=== PATIENT | female | born 1935 | race Caucasian/White ===

== ENCOUNTER 2018-09-04 19:53 | Inpatient (IN) | payer OTHER ==
[~2018-09-04] VITALS: Ht 157.5 cm; Wt 59.0 kg
[2018-09-04] MEDS ORDERED: NAMENDA10 MG (20:11)
[2018-09-04] MEDS ORDERED: LOSARTAN-HCTZ1 EAC1 (20:12)
[2018-09-04] MEDS ORDERED: CARDURA1 MG (20:12)
[2018-09-04] MEDS ORDERED: COREG CR20 MG (20:12)
--- NOTE | 2018-09-04 20:33 | NUR ---
PTE ALERTA Y ORIENTADA X3 ACOMPANADA, PTE REFIERE QUE PRESENTA DOLOR DE PECHO QUE SE IRRADIA HASTA LA ESPALDA. PTE REFIERE QUE EN EL HOME DONDE SE ENCUENTRA LE ADMINISTRARON DON PASTILLA DE NITROGLICERINA SUBLINGUAL Y NO MEJORO CON ESO. SE LE JIMMY B/P MANUAL EN 200/70 Y SE LE REALIZA EKG EL CUAL SE PRESENTA A QUIEN REFIERE QUE SE COLOQUE PTE EN K8 CONECTADO A MONITOR CARDIACO.
--- NOTE | 2018-09-04 21:25 | NUR ---
SE ORIENTA PTE SOBRE TX MEDICO EL CUAL REFIERE ENTENDER.SE LE EXTRAEN MUESTRAS,SE CANALIZA Y SE ADMINISTRA MEDICAMENTO PRATIMA ORDEN MEDICA.SE COLOCA CANULA NASAL @ 3LTS.
--- NOTE | 2018-09-05 00:45 | NUR ---
SE RECIBE FEMINA ALERTA Y ORIENTADA POR JOSE ESFERAS, EN CAMA CON BARANDAS SEGURAS Y ELEVADAS. CNECTADA A MONITOR CARDIACO CON OXIMETRIA DE PULSO. EN COMPANIA DE FAMILIAR. CANALIZADA EN BRAZO DERECHO CON AREA DE VENOPUNCION VALERIE DE EDEMA O ENROJECIMIENTO. SE CANALIZA EN MANO DERECHA Y SE MIGUEL MUESTRAS DE LABORATORIO ORDENADAS. RECIBIENDO 0.9% NSS @ 60 ML/HR Y TRIDIL 50MG/250ML @ 3 ML/HR. SE ENTREGA MUESTRA DE ORINA. SE MANTIENE EN OBSERVACION POR CAMBIOS.
--- NOTE | 2018-09-05 07:28 | NUR ---
SE RECIBE PTE FEMENIAN DE 83 YRS ALERTA CONCITE Y TRANQUILA EN COMPANIA DE FAMILIAR. PTE EN CAMA EN LA UNIDAD DE SEC-K CONCETADA A MONITOR CARDIACO Y OXIMENTRIA . PTE CON IVF PATENTE Y VALERIE DE EDEMA. BAJANDO A 60 ML HR Y TRIDIL 50/250 A 3 MLHR.SE MANTIENE EN CONSULTA CON EL , JODY SLADE LA CUAL SE MANTIENE NOTIFICADO. SE OBSERVA POR CAMBIOS.
--- NOTE | 2018-09-05 08:19 | NUR ---
SE LE JIMMY SEGUNDA MUESTRA DE TROPONINA A LA PTE . SE JIMMY MEDIDAS ASEPTICA CON PROCEDIMIENTO.
[2018-09-07] MEDS ORDERED: AMLODIPINE BESYL5 MG PO (12:35)
[2018-09-07] MEDS ORDERED: ASA-EC81 MG PO (12:37)
[2018-09-07] MEDS ORDERED: BUSPIRONE HCL5 MG PO (12:37)
[2018-09-07] MEDS ORDERED: LOSARTAN-HCTZ1 EAC1 PO (12:37)
[2018-09-07] MEDS ORDERED: NAMENDA10 MG PO (12:37)
[2018-09-07] MEDS ORDERED: ISOSORBIDE MONO30 MG PO (12:38)
[2018-09-07] MEDS ORDERED: LASIX20 MG PO (12:39)
[2018-09-07] MEDS ORDERED: Coreg 3.125MG TABLET PO (12:40)
[2018-09-07] MEDS ORDERED: CARdura 4MG TABLET PO (12:40)
== END 2018-09-07 13:48 | disposition home or self-care (01) | DRG 292 ==
LOC: ER 19:53 → SEC-K 09-05 10:43 → MEDJ 09-05 10:43
PROVIDERS: ADMIT Internal Medicine
PROC: BW24ZZZ Computerized Tomography (CT Scan) of Chest and Abdomen (ICD-10-PCS; principal; 2018-09-05)
PROC: B246ZZZ Ultrasonography of Right and Left Heart (ICD-10-PCS; 2018-09-05)
PROC: 4A12X4Z Monitoring of Cardiac Electrical Activity, External Approach (ICD-10-PCS; 2018-09-05)
DX: I11.0 Hypertensive heart disease with heart failure (principal); I25.798 Atherosclerosis of other coronary artery bypass graft(s) with other forms of angina pectoris; I50.41 Acute combined systolic (congestive) and diastolic (congestive) heart failure; I44.7 Left bundle-branch block, unspecified; I16.0 Hypertensive urgency; Z88.0 Allergy status to penicillin; Z95.1 Presence of aortocoronary bypass graft

== ENCOUNTER 2019-02-04 10:11 | Inpatient (IN) | payer OTHER ==
[~2019-02-04] VITALS: Ht 157.5 cm; Wt 59.0 kg
[~2019-02-04 10:11] MED LIST: AMLODIPINE BESYL5 MG PO; ASA-EC81 MG PO; BUSPIRONE HCL5 MG PO; CARDURA1 MG; CARdura 4MG TABLET PO; COREG CR20 MG; Coreg 3.125MG TABLET PO; ISOSORBIDE MONO30 MG PO; LASIX20 MG PO; LOSARTAN-HCTZ1 EAC1; LOSARTAN-HCTZ1 EAC1 PO; NAMENDA10 MG; NAMENDA10 MG PO
[2019-02-04] MEDS ORDERED: LYSIPLEX PLUS178 ML PO (10:32)
[2019-02-04] MEDS ORDERED: ZANTAC150 M3 PO (10:33)
[2019-02-04] MEDS ORDERED: NORVASC2.5 M1 PO (10:34)
[2019-02-04] MEDS ORDERED: IRON325 MG PO (10:34)
[2019-02-04] MEDS ORDERED: CARDURA1 MG PO (10:34)
[2019-02-04] MEDS ORDERED: ISOSORBIDE MONO30 MG PO (10:35)
[2019-02-08] MEDS ORDERED: SIMVASTATIN20 MG PO (15:30)
[2019-02-08] MEDS ORDERED: CLOPIDOGREL BIS75 MG PO (15:30)
[2019-02-08] MEDS ORDERED: AMLODIPINE BESY10 MG PO (15:30)
[2019-02-08] MEDS ORDERED: HYDRALAZINE HCL25 MG PO (15:30)
[2019-02-08] MEDS ORDERED: ASA-EC81 MG PO (15:30)
[2019-02-08] MEDS ORDERED: CARVEDILOL3.125 MG PO (15:30)
== END 2019-02-08 16:48 | disposition home or self-care (01) | DRG 281 ==
LOC: ER 10:11 → SURG 02-05 07:14 → SEC-K 02-05 07:14 → SURG 02-05 12:22 → MEDI 02-07 16:40
PROVIDERS: ADMIT Internal Medicine
PROC: B246ZZZ Ultrasonography of Right and Left Heart (ICD-10-PCS; principal; 2019-02-05)
PROC: 4A12X4Z Monitoring of Cardiac Electrical Activity, External Approach (ICD-10-PCS; 2019-02-05)
DX: I21.4 Non-ST elevation (NSTEMI) myocardial infarction (principal); I25.810 Atherosclerosis of coronary artery bypass graft(s) without angina pectoris; N17.8 Other acute kidney failure; I13.0 Hypertensive heart and chronic kidney disease with heart failure and stage 1 through stage 4 chronic kidney disease, or unspecified chronic kidney disease; I50.22 Chronic systolic (congestive) heart failure; I48.2 Chronic atrial fibrillation; I44.7 Left bundle-branch block, unspecified; I11.0 Hypertensive heart disease with heart failure; I08.0 Rheumatic disorders of both mitral and aortic valves; N18.2 Chronic kidney disease, stage 2 (mild); G30.0 Alzheimer's disease with early onset; F02.80 Dementia in other diseases classified elsewhere, unspecified severity, without behavioral disturbance, psychotic disturbance, mood disturbance, and anxiety; Z79.01 Long term (current) use of anticoagulants

== ENCOUNTER 2019-02-10 12:50 | Inpatient (IN) | payer OTHER ==
[~2019-02-10] VITALS: Ht 167.6 cm; Wt 70.8 kg
[~2019-02-10 12:50] MED LIST changes: +AMLODIPINE BESY10 MG PO; +CARDURA1 MG PO; +CARVEDILOL3.125 MG PO; +CLOPIDOGREL BIS75 MG PO; +HYDRALAZINE HCL25 MG PO; +IRON325 MG PO; +LYSIPLEX PLUS178 ML PO; +NORVASC2.5 M1 PO; +SIMVASTATIN20 MG PO; +ZANTAC150 M3 PO
[2019-03-23] MEDS ORDERED: POLY119PG PO (15:34)
[2019-03-23] MEDS ORDERED: LOSARTAN POTAS100 MG PO (15:34)
[2019-03-23] MEDS ORDERED: ASA-EC81 MG PO (15:34)
[2019-03-23] MEDS ORDERED: Neurin-Sl Tablet Sl SL (15:34)
[2019-03-23] MEDS ORDERED: CARVEDILOL3.125 MG PO (15:34)
[2019-03-23] MEDS ORDERED: APETIGEN L790 MG/15 PO (15:34)
[2019-03-23] MEDS ORDERED: NIFEDIPINE ER30 MG PO (15:34)
[2019-03-23] MEDS ORDERED: HYDRALAZINE HCL25 MG PO (15:34)
[2019-03-23] MEDS ORDERED: FOLIC ACID1 MG PO (15:34)
== END 2019-03-23 17:04 | disposition home or self-care (01) | DRG 682 ==
LOC: ER 12:50 → SURH 02-11 00:06 → MEDJ 02-21 14:46
PROVIDERS: ADMIT Internal Medicine
PROC: B54CZZZ Ultrasonography of Left Lower Extremity Veins (ICD-10-PCS; principal; 2019-02-11)
PROC: 30233N1 Transfusion of Nonautologous Red Blood Cells into Peripheral Vein, Percutaneous Approach (ICD-10-PCS; 2019-02-11)
PROC: BW2GZZZ Computerized Tomography (CT Scan) of Pelvic Region (ICD-10-PCS; 2019-02-15)
PROC: CP1D1ZZ Planar Nuclear Medicine Imaging of Left Lower Extremity using Technetium 99m (Tc-99m) (ICD-10-PCS; 2019-02-20)
PROC: BB24ZZZ Computerized Tomography (CT Scan) of Bilateral Lungs (ICD-10-PCS; 2019-02-22)
PROC: B246ZZZ Ultrasonography of Right and Left Heart (ICD-10-PCS; 2019-02-22)
PROC: CP1ZYZZ Planar Nuclear Medicine Imaging of Musculoskeletal System, All using Other Radionuclide (ICD-10-PCS; 2019-02-23)
PROC: BW28ZZZ Computerized Tomography (CT Scan) of Head (ICD-10-PCS; 2019-02-24)
PROC: 3E0F7GC Introduction of Other Therapeutic Substance into Respiratory Tract, Via Natural or Artificial Opening (ICD-10-PCS; 2019-03-02)
PROC: BB24ZZZ Computerized Tomography (CT Scan) of Bilateral Lungs (ICD-10-PCS; 2019-03-08)
PROC: 0DH67UZ Insertion of Feeding Device into Stomach, Via Natural or Artificial Opening (ICD-10-PCS; 2019-03-11)
PROC: 3E0G76Z Introduction of Nutritional Substance into Upper GI, Via Natural or Artificial Opening (ICD-10-PCS; 2019-03-11)
PROC: BW21ZZZ Computerized Tomography (CT Scan) of Abdomen and Pelvis (ICD-10-PCS; 2019-03-14)
PROC: 30233N1 Transfusion of Nonautologous Red Blood Cells into Peripheral Vein, Percutaneous Approach (ICD-10-PCS; 2019-03-17)
DX: N17.8 Other acute kidney failure (principal); I21.4 Non-ST elevation (NSTEMI) myocardial infarction; I25.810 Atherosclerosis of coronary artery bypass graft(s) without angina pectoris; I50.32 Chronic diastolic (congestive) heart failure; I13.0 Hypertensive heart and chronic kidney disease with heart failure and stage 1 through stage 4 chronic kidney disease, or unspecified chronic kidney disease; I67.82 Cerebral ischemia; R65.10 Systemic inflammatory response syndrome (SIRS) of non-infectious origin without acute organ dysfunction; Q61.01 Congenital single renal cyst; G72.81 Critical illness myopathy; J98.11 Atelectasis; J90 Pleural effusion, not elsewhere classified; E44.0 Moderate protein-calorie malnutrition; G93.49 Other encephalopathy; I24.8 Other forms of acute ischemic heart disease; D72.828 Other elevated white blood cell count; E87.6 Hypokalemia; I69.398 Other sequelae of cerebral infarction; K56.41 Fecal impaction; G30.0 Alzheimer's disease with early onset; F02.80 Dementia in other diseases classified elsewhere, unspecified severity, without behavioral disturbance, psychotic disturbance, mood disturbance, and anxiety; D63.8 Anemia in other chronic diseases classified elsewhere; N18.3 Chronic kidney disease, stage 3 (moderate); I11.0 Hypertensive heart disease with heart failure; I44.7 Left bundle-branch block, unspecified; I48.0 Paroxysmal atrial fibrillation; R54 Age-related physical debility; I08.3 Combined rheumatic disorders of mitral, aortic and tricuspid valves; K57.30 Diverticulosis of large intestine without perforation or abscess without bleeding; M15.4 Erosive (osteo)arthritis; I87.2 Venous insufficiency (chronic) (peripheral); Z79.01 Long term (current) use of anticoagulants; Z09 Encounter for follow-up examination after completed treatment for conditions other than malignant neoplasm; Z95.1 Presence of aortocoronary bypass graft

== ENCOUNTER 2020-05-07 05:25 | Day surgery (SDC) | payer OTHER ==
[~2020-05-07 05:25] MED LIST changes: +APETIGEN L790 MG/15 PO; +FEOSOL325 MG PO; +FOLIC ACID1 MG PO; +FOLIC PO; +LOSARTAN POTAS100 MG PO; +MIRTAZAPINE15 M1 PO; +MIRTAZAPINE7.5 MG PO; +NIFEDIPINE ER30 MG PO; +Neurin-Sl Tablet Sl SL; +POLY119PG PO; +RESTORIL15 M1 PO; +[UNRECOGNIZED DRUG - OTHER] PO; +[UNRECOGNIZED DRUG - OTHER] PO; +[UNRECOGNIZED DRUG - OTHER] PO
[2020-05-07] MEDS ORDERED: DUI500 PO (16:00)
[2020-05-07] MEDS ORDERED: ULTRACET PO (16:00)
[2020-05-07] MEDS ORDERED: ALEVE220 M1 PO (16:00)
== END 2020-05-07 19:00 | disposition home or self-care (01) ==
LOC: CIR.AMB 05:25
PROVIDERS: ATTEND Orthopaedic Surgery
DX: S52.571A Other intraarticular fracture of lower end of right radius, initial encounter for closed fracture (principal); Z20.828 Contact with and (suspected) exposure to other viral communicable diseases
CPT/HCPCS: 20902; 25609; C1776

== ENCOUNTER 2023-04-21 13:52 | Emergency (ER) | payer OTHER ==
[~2023-04-21] VITALS: Ht 154.9 cm; Wt 49.9 kg
[~2023-04-21 13:52] MED LIST changes: +ALEVE220 M1 PO; +DUI500 PO; +ULTRACET PO
[2023-04-21] MEDS ORDERED: ATORVASTATIN CA40 MG (14:27)
[2023-04-21] MEDS ORDERED: LASIX20 MG (14:28)
[2023-04-21] MEDS ORDERED: AMLODIPINE-OLM1 EAC2 (14:29)
[2023-04-21] MEDS ORDERED: FAMOTIDINE20 MG (14:30)
[2023-04-21] MEDS ORDERED: LYSIPLEX PLUS178 ML (14:31)
[2023-04-21 16:51] LABS: HEMATOCRIT 33.1 % (36.0-45.00); HEMOGLOBIN 10.7 g/dL (12.0-15.00); MEAN CELL VOLUME 97.9 fL (80.00-100.00); MEAN CORPUSCULAR HEMOGLOBIN 31.5 pg (27.00-32.0); MEAN CORPUSCULAR HGB CONC 32.2 g/dl (32.0-36.0); PLATELET COUNT 150 K/uL (150-450); RED BLOOD COUNT 3.38 M/uL (4.00-6.00); RED CELL DISTRIBUTION WIDTH 13.7 % (11.5-14.5)
== END 2023-04-21 18:48 | disposition home or self-care (01) ==
LOC: ER 13:52
PROVIDERS: General Practice
DX: S09.90XA Unspecified injury of head, initial encounter (principal); W19.XXXA Unspecified fall, initial encounter; Y93.89 Activity, other specified; Y92.89 Other specified places as the place of occurrence of the external cause; Y99.8 Other external cause status; R53.81 Other malaise; I10 Essential (primary) hypertension; Z88.0 Allergy status to penicillin; Z91.013 Allergy to seafood; Z91.041 Radiographic dye allergy status